=== PATIENT | female | born 1965 | race African-American/Black ===

== ENCOUNTER 2017-02-03 18:29 | Inpatient (IN) | payer OTHER ==
[2017-02-03 20:06] VITALS: BMI 23.3
--- NOTE | 2017-02-03 21:05 | HP ---
COWS - Scale Resting Pulse: 0= [place] 80 or Below Sweatin=Flushed/Facial Moisture Restless Observation: 1= Difficult to Sit Still Pupil Size: 1= Pupils >than Normal Bone or Joint Aches: 2= Severe Diffuse Aches Runny Nose/ Eye Tearin= Runny Nose/Eyes GI Upset > 30mins: 1= Stomach Cramp Tremor Observation: 1= Tremor [place], Not Seen Yawning Observation: 1= 1-2x During Session Anxiety or Irritability: 2=Irritable/Anxious Goose Flesh Skin: 3=Piloerection COWS Score: 16 Admission ROS S - [facility] Chief Complaint: Withdrawal symptoms Allergies/Adverse Reactions: Allergies Allergy/AdvReac Type Severity Reaction Status Date / Time No Known Allergies Allergy Verified 01/08/16 19:38 History of Present Illness: 51 y.o. woman with an extensive history of heroin dependence is here seeking detox. She reports a 6 year history of being clean. She was last here for detox in 01/2016. Exam Limitations: No Limitations - Ebola screening Have you traveled outside of the country in the last 21 days: No Have you had contact with anyone from an Ebola affected area: No Have you been sick,other than usual withdrawal symptoms: No Do you have a fever: No - Review of Systems Constitutional: Chills, Diaphoresis, Loss of Appetite, Night Sweats, Unintentional Wgt. Loss EENT: reports: Blurred Vision, Tearing, Nose Congestion Respiratory: reports: No Symptoms reported Cardiac: reports: No Symptoms Reported GI: reports: Abdominal cramping : reports: No Symptoms Reported Musculoskeletal: reports: Back Pain Integumentary: reports: No Symptoms Reported Neuro: reports: Headache, Tingling Endocrine: reports: No Symptoms Reported Hematology: reports: No Symptoms Reported Psychiatric: reports: Orientated x3, Depressed Other Systems: Reviewed and Negative Patient History - Patient Medical History Hx Anemia: Yes (MV) Hx Asthma: No Hx Chronic Obstructive Pulmonary Disease (COPD): No Hx Cancer: No Hx Cardiac Disorders: No Hx Congestive Heart Failure: No Hx Hypertension: Yes (ON LISINOPRIL) Hx Hypercholesterolemia: No Hx Pacemaker: No HX Cerebrovascular Accident: No Hx Seizures: No Hx Dementia: No Hx Diabetes: No Hx Gastrointestinal Disorders: No Hx Liver Disease: No Hx Genitourinary Disorders: No Hx Sexually Transmitted Disorders: No Hx Renal Disease (ESRD): No Hx Thyroid Disease: No Hx Human Immunodeficiency Virus (HIV): No Hx Hepatitis C: Yes (NO TXMENT) Hx Depression: Yes (PRESENTLY DENIES SI/HI) Hx Suicide Attempt: No Hx Bipolar Disorder: No Hx Schizophrenia: No - Patient Surgical History Past Surgical History: Yes Hx Neurologic Surgery: No Hx Cataract Extraction: No Hx Cardiac Surgery: No Hx Lung Surgery: No Hx Breast Surgery: No Hx Breast Biopsy: No Hx Abdominal Surgery: No Hx Appendectomy: No Hx Cholecystectomy: No Hx Genitourinary Surgery: No Hx Section: Yes (X5) Hx Orthopedic Surgery: No Anesthesia Reaction: No - PPD History Previous Implant?: Yes Documented Results: Negative w/proof Implanted On Prior R Admission?: Yes Date: 01/10/16 Results: 0 PPD to be Administered?: Yes - Reproductive History Patient is a Female of Child Bearing Age (11 -55 yrs old): Yes Last Menstrual Period: 10/23/15 Patient : No - Smoking Cessation Smoking history: Current every day smoker Have you smoked in the past 12 months: Yes Aproximately how many cigarettes per day: 20 Cigars Per Day: 0 Hx Chewing Tobacco Use: No Initiated information on smoking cessation: Yes 'Breaking Loose' booklet given: 02/03/17 - Substance & Tx. History Hx Alcohol Use: No Hx Substance Use: Yes Substance Use Type: Cocaine, Heroin Hx Substance Use Treatment: Yes (Detox here in 01/2016; cant recall last admission to rehab) - Substances Abused Heroin Route: Injection Frequency: Daily Amount used: 1 bundle Age of first use: 20 Date of Last Use: 02/02/17 Family Disease History - Family Disease History Family Disease History: Other: Father ( ESTRANGED), Mother ( AIDS), Sister (DRUG ABUSE) Admission Physical Exam BHS - Vital Signs Vital Signs: Vital Signs - 24 hr 02/03/17 20:03 Temperature 98.9 F Pulse Rate 69 Respiratory 18 Rate Blood Pressure 148/78 - Physical General Appearance: Yes: Tremorous, Irritable, Sweating, Anxious HEENTM: Yes: Hearing grossly Normal, Normal ENT Inspection, Normocephalic Respiratory: Yes: Chest Non-Tender, Lungs Clear, Normal Breath Sounds, No Respiratory Distress, No Accessory Muscle Use Neck: Yes: No masses,lesions,Nodules, Trachea in good position Breast: Yes: Breast Exam Deferred Cardiology: Yes: Regular Rhythm, Regular Rate Abdominal: Yes: Non Tender, Flat, Soft Genitourinary: Yes: Other Back: Yes: Normal Inspection Musculoskeletal: Yes: Gait Steady, Pelvis Stable, Back pain Extremities: Yes: Normal Capillary Refill, Normal Inspection, Normal Range of Motion Neurological: Yes: 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 II-XII NML intact, Fully Oriented, Alert, Motor Strength 5/5, Normal Mood/Affect, Normal Response Integumentary: Yes: Normal Color, Dry, Warm, Track Vee Lymphatic: Yes: Within Normal Limits - Diagnostic (1) Cocaine dependence Current Visit: Yes Status: Chronic (2) Hypertension Current Visit: Yes Status: Chronic (3) Opioid dependence with withdrawal Current Visit: Yes Status: Chronic Cleared for Admission [facility] - Detox or Rehab [facility] Level of Care: Medically Managed Detox Regimen/Protocol: Methadone [facility] Breath Alcohol Content Breath Alcohol Content: 0 Urine Pregancy Test - Result Urine Test Results: Negative- NO Line Present Urine Drug Screen - Results Drug Screen Negative: No Urine Drug Screen Results: MIRNA-Cocaine, OPI-Opiates, BZO-Benzodiazepines, TCA- Tricyclic Antidepress
[2017-02-03] MEDS ORDERED: IBUPROFEN 400 MG TABLET (FP) PO PRN (21:23)
[2017-02-03] MEDS ORDERED: guaiFENesin/D-METHORPHAN HB 10 ML UNIT-DOSE CUPS PO PRN (21:23)
[2017-02-03] MEDS ORDERED: MAGNESIUM HYDROX 2400MG/30ML ORAL SUSPENSION 30 ML CUP PO PRN (21:23)
[2017-02-03] MEDS ORDERED: P-EPHED 60MG/TRIPROLIDI 2.5MG TABLET PO PRN (21:23)
[2017-02-03] MEDS ORDERED: ACETAMINOPHEN 325 MG TABLET (FP) PO PRN (21:23)
[2017-02-03] MEDS ORDERED: METHADONE HCL 10 MG TABLET (FOR DETOX USE ONLY) PO ONE ×2 (21:23→23:00)
[2017-02-03] MEDS ORDERED: MAG HYDROX/AL HYDROX/SIMETH 30 ML UNIT-DOSE CUP PO PRN (21:23)
[2017-02-03] MEDS ORDERED: LOPERAMIDE HCL 2 MG CAPSULE PO PRN (21:23)
[2017-02-03] MEDS ORDERED: MAGNESIUM CITRATE 300 ML BOTTLE PO PRN (21:23)
[2017-02-03] MEDS ORDERED: MENTHOL/PHENOL 1 EACH UD MM PRN (21:23)
[2017-02-03] MEDS: LISINOPRIL 5 MG TABLET (FP) PO SCH (22:38)
[2017-02-03] MEDS: THIAMINE HCL 100 MG TABLET (FP) PO SCH (22:38)
[2017-02-03] MEDS: diazePAM 5 MG TABLET PO PRN (22:38)
[2017-02-04] MEDS: hydrOXYzine PAMOATE 50 MG CAPSULE (FP) PO PRN (00:41)
[2017-02-04 01:19] LABS: URINE APPEARANCE CLOUDY; URINE BILIRUBIN NEGATIVE (NEGATIVE); URINE BLOOD NEGATIVE (NEGATIVE); URINE COLOR AMBER; URINE GLUCOSE (UA) 2+ (NEGATIVE); URINE KETONE NEGATIVE (NEGATIVE); URINE NITRITE NEGATIVE (NEGATIVE); URINE UROBILINOGEN 4.0 E.U/dl mg/dL (0.2-1.0)
[2017-02-04 01:26] LABS: URINE LEUK ESTERASE 2+ (NEGATIVE); URINE PROTEIN 1+ (NEGATIVE)
[2017-02-04 01:30] LABS: URINE HYALINE CAST 8 /lpf; URINE MUCUS MANY; URINE RBC 11 /hpf (0-3); URINE WBC 41 /hpf (3-5)
[2017-02-04] MEDS: diazePAM 5 MG TABLET PO PRN ×3 (03:30→22:28)
[2017-02-04] MEDS ORDERED: METHADONE HCL 10 MG TABLET (FOR DETOX USE ONLY) PO ONE (10:00)
[2017-02-04 10:32] LABS: MCH 29.9 pg (25.7-33.7); MCHC 34.2 g/dl (32.0-36.0); MEAN CELL VOLUME 87.5 fl (80-96); MEAN PLT VOLUME 8.7 fl (7.5-11.1); PLATELET COUNT 199 K/MM3 (134-434); RDW 15.3 % (11.6-15.6); WHITE BLOOD COUNT 6.7 K/mm3 (4.0-10.0)
[2017-02-04 10:55] LABS: ALBUMIN 3.1 g/dl (3.4-5.0); ALK PHOS 117 U/L (45-117); ANION GAP 7 (8-16); BILIRUBIN,TOTAL 0.3 mg/dL (0.2-1.0); CO2 29 mmol/L (21-32); CREATININE 1.1 mg/dL (0.55-1.02); GLUCOSE,RANDOM 231 mg/dL (74-106); SGOT/AST 22 U/L (15-37); SGPT/ALT 25 U/L (12-78); TOT PROT 6.4 g/dl (6.4-8.2)
[2017-02-04] MEDS: NICOTINE 21 MG/24 HOURS TOPICAL PATCH TD SCH (11:10)
[2017-02-04] MEDS: PRENATAL VITAMINS W/ FOLIC ACID TABLET (FP) PO SCH (11:10)
[2017-02-04] MEDS: LISINOPRIL 5 MG TABLET (FP) PO SCH (11:10)
--- NOTE | 2017-02-04 11:12 | PN ---
BHS COWS - Scale Resting Pulse: 0= [place] 80 or Below Sweatin=Flushed/Facial Moisture Restless Observation: 1= Difficult to Sit Still Pupil Size: 0= Normal to Room Light Bone or Joint Aches: 2= Severe Diffuse Aches Runny Nose/ Eye Tearin= Runny Nose/Eyes GI Upset > 30mins: 2= Nausea/Diarrhea Tremor Observation of Outstretched Hands: 2= Slight Tremor Visible Yawning Observation: 2= >3x During Session Anxiety or Irritability: 2=Irritable/Anxious Goose Flesh Skin: 0=Smooth Skin COWS Score: 15 BHS Progress Note (SOAP) Subjective: agitation anxiety sweats shakes body aches irritable I was borderline diabetic and took medication a long time ago. Objective: 02/04/17 11:11 Vital Signs Temperature 98.3 F 02/04/17 09:49 Pulse Rate 74 02/04/17 09:49 Respiratory Rate 16 02/04/17 09:49 Blood Pressure 126/71 02/04/17 09:49 O2 Sat by Pulse Oximetry (%) Laboratory Tests 02/03/17 02/04/17 02/04/17 22:35 06:30 06:30 WBC 6.7 RBC 4.43 Hgb 13.3 D Hct 38.8 MCV 87.5 MCH 29.9 D MCHC 34.2 RDW 15.3 D Plt Count 199 MPV 8.7 Sodium 138 Potassium 3.5 Chloride 102 Carbon Dioxide 29 Anion Gap 7 L BUN 19 H Creatinine 1.1 H Creat Clearance w eGFR 52.79 Random Glucose 231 H D Calcium 9.0 Total Bilirubin 0.3 AST 22 ALT 25 Alkaline Phosphatase 117 Total Protein 6.4 Albumin 3.1 L D Urine Color [place] Urine Appearance Cloudy Urine pH 7.0 Ur Specific [place] 1.020 Urine Protein 1+ H Urine Glucose (UA) 2+ H Urine Ketones Negative Urine Blood Negative Urine Nitrite Negative Urine Bilirubin Negative Urine Urobilinogen 4.0 e.u/dl H Ur Leukocyte Esterase 2+ H Urine RBC 11 Urine WBC 41 Ur Epithelial Cells Many Hyaline Casts 8 Urine Mucus Many repeat u/a glucose fasting blood work ordered; random glucose is 231 awake/alert ambulating no acute distress Assessment: 02/04/17 11:20 withdrawal sx Plan: continue detox increase fluids labs ordered pt placed on insulin sliding scale glucerna with meals ordered
[2017-02-04] MEDS: NICOTINE POLACRILEX 4 MG GUM BC PRN (14:01)
[2017-02-04 14:17] LABS: URINE APPEARANCE CLOUDY; URINE BILIRUBIN NEGATIVE (NEGATIVE); URINE BLOOD NEGATIVE (NEGATIVE); URINE COLOR DKYELLOW; URINE GLUCOSE (UA) 2+ (NEGATIVE); URINE KETONE NEGATIVE (NEGATIVE); URINE NITRITE NEGATIVE (NEGATIVE); URINE UROBILINOGEN 4.0 E.U/dl mg/dL (0.2-1.0)
[2017-02-04 14:21] LABS: URINE LEUK ESTERASE 3+ (NEGATIVE); URINE PROTEIN 1+ (NEGATIVE)
[2017-02-04 15:55] LABS: CALCIUM OXALATE CRYSTALS RARE /hpf (NONE SEEN); URINE HYALINE CAST 4 /lpf; URINE MUCUS MODERATE; URINE RBC 70 /hpf (0-3); URINE WBC 300 /hpf (3-5)
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
[2017-02-04] MEDS: INSULIN (NOVOLOG) ASPART 100 UNITS/ML 10ML VIAL SQ SCH (17:37)
--- NOTE | 2017-02-04 21:49 | EKG ---
Test Reason : Blood Pressure : / mmHG Vent. Rate : 071 BPM Atrial Rate : 071 BPM P-R Int : 142 ms QRS Dur : 088 ms QT Int : 412 ms P-R-T Axes : 067 008 028 degrees QTc Int : 447 ms NORMAL SINUS RHYTHM INCOMPLETE RBBB LEFT ATRIAL ABNORMALITY ABNORMAL ECG NO PREVIOUS ECGS AVAILABLE REPEAT EKG IF CLINICALLY INDICATED Confirmed by PETER GUTIERREZ MD ([id number]) on 02/04/2017 9:49:11 PM Referred By: Confirmed By:PETER GUTIERREZ MD
[2017-02-04] MEDS: THIAMINE HCL 100 MG TABLET (FP) PO SCH (22:28)
[2017-02-04] MEDS: QUEtiapine FUMARATE 100 MG TABLET (FP) PO SCH (22:28)
[2017-02-05] MEDS ORDERED: INSULIN (NOVOLOG) ASPART 100 UNITS/ML 10ML VIAL ONE ×2 (07:58→12:02)
[2017-02-05] MEDS: INSULIN (NOVOLOG) ASPART 100 UNITS/ML 10ML VIAL SQ SCH ×3 (08:14→17:38)
[2017-02-05] MEDS ORDERED: metroNIDAZOLE 250 MG TABLET PO ONE (09:25)
[2017-02-05] MEDS ORDERED: METHADONE HCL 5 MG TABLET (FOR DETOX USE ONLY) PO ONE (10:00)
[2017-02-05] MEDS: LISINOPRIL 5 MG TABLET (FP) PO SCH (10:55)
[2017-02-05] MEDS: PRENATAL VITAMINS W/ FOLIC ACID TABLET (FP) PO SCH (10:55)
[2017-02-05] MEDS: NICOTINE 21 MG/24 HOURS TOPICAL PATCH TD SCH (10:55)
[2017-02-05] MEDS: NICOTINE POLACRILEX 4 MG GUM BC PRN ×3 (11:01→22:38)
--- NOTE | 2017-02-05 11:02 | PN ---
BHS COWS - Scale Resting Pulse: 0= [place] 80 or Below Sweatin=Flushed/Facial Moisture Restless Observation: 1= Difficult to Sit Still Pupil Size: 0= Normal to Room Light Bone or Joint Aches: 2= Severe Diffuse Aches Runny Nose/ Eye Tearin= Runny Nose/Eyes GI Upset > 30mins: 2= Nausea/Diarrhea Tremor Observation of Outstretched Hands: 0= None Yawning Observation: 2= >3x During Session Anxiety or Irritability: 2=Irritable/Anxious Goose Flesh Skin: 3=Piloerection COWS Score: 16 S Progress Note (SOAP) Subjective: irritable agitation anxiety sweats Objective: 02/05/17 11:00 Vital Signs Temperature 98.5 F 02/05/17 10:00 Pulse Rate 68 02/05/17 10:00 Respiratory Rate 20 02/05/17 10:00 Blood Pressure 119/72 02/05/17 10:00 O2 Sat by Pulse Oximetry (%) Laboratory Tests 02/03/17 02/04/17 02/04/17 22:35 06:30 06:30 WBC 6.7 RBC 4.43 Hgb 13.3 D Hct 38.8 MCV 87.5 MCH 29.9 D MCHC 34.2 RDW 15.3 D Plt Count 199 MPV 8.7 Sodium 138 Potassium 3.5 Chloride 102 Carbon Dioxide 29 Anion Gap 7 L BUN 19 H Creatinine 1.1 H Creat Clearance w eGFR 52.79 POC Glucometer Random Glucose 231 H D Calcium 9.0 Total Bilirubin 0.3 AST 22 ALT 25 Alkaline Phosphatase 117 Total Protein 6.4 Albumin 3.1 L D Urine Color [place] Urine Appearance Cloudy Urine pH 7.0 Ur Specific [place] 1.020 Urine Protein 1+ H Urine Glucose (UA) 2+ H Urine Ketones Negative Urine Blood Negative Urine Nitrite Negative Urine Bilirubin Negative Urine Urobilinogen 4.0 e.u/dl H Ur Leukocyte Esterase 2+ H Urine RBC 11 Urine WBC 41 Ur Epithelial Cells Many Calcium Oxalate Crystal Hyaline Casts 8 Urine Mucus Many RPR Titer 02/04/17 02/04/17 02/04/17 06:30 12:05 16:40 WBC RBC Hgb Hct MCV MCH MCHC RDW Plt Count MPV Sodium Potassium Chloride Carbon Dioxide Anion Gap BUN Creatinine Creat Clearance w eGFR POC Glucometer 120 Random Glucose Calcium Total Bilirubin AST ALT Alkaline Phosphatase Total Protein Albumin Urine Color [place] Urine Appearance Cloudy Urine pH 6.0 Ur Specific [place] 1.020 Urine Protein 1+ H Urine Glucose (UA) 2+ H Urine Ketones Negative Urine Blood Negative Urine Nitrite Negative Urine Bilirubin Negative Urine Urobilinogen 4.0 e.u/dl H Ur Leukocyte Esterase 3+ H Urine RBC 70 Urine WBC 300 Ur Epithelial Cells Moderate Calcium Oxalate Crystal Rare Hyaline Casts 4 Urine Mucus Moderate RPR Titer Nonreactive 02/05/17 06:35 WBC RBC Hgb Hct MCV MCH MCHC RDW Plt Count MPV Sodium Potassium Chloride Carbon Dioxide Anion Gap BUN Creatinine Creat Clearance w eGFR POC Glucometer 199 Random Glucose Calcium Total Bilirubin AST ALT Alkaline Phosphatase Total Protein Albumin Urine Color Urine Appearance Urine pH Ur Specific [place] Urine Protein Urine Glucose (UA) Urine Ketones Urine Blood Urine Nitrite Urine Bilirubin Urine Urobilinogen Ur Leukocyte Esterase Urine RBC Urine WBC Ur Epithelial Cells Calcium Oxalate Crystal Hyaline Casts Urine Mucus RPR Titer awake/alert lying in bed no acute distress repeated u/a show an increase of WBC, pt states she is having a foul odor vaginally. ABX will be ordered increase fluids Assessment: 02/05/17 11:02 withdrawal sx Plan: continue detox increase fluids flagly 500mg bid x 7 days ordered
[2017-02-05] MEDS: metroNIDAZOLE 250 MG TABLET PO SCH ×2 (13:18→22:32)
[2017-02-05] MEDS: diazePAM 5 MG TABLET PO PRN ×2 (13:59→22:34)
[2017-02-05] MEDS: QUEtiapine FUMARATE 100 MG TABLET (FP) PO SCH (22:32)
[2017-02-05] MEDS: diphenhydrAMINE HCL 50 MG CAPSULE PO PRN (22:33)
[2017-02-05] MEDS: THIAMINE HCL 100 MG TABLET (FP) PO SCH (22:35)
[2017-02-06] MEDS: metroNIDAZOLE 250 MG TABLET PO SCH ×3 (06:36→22:24)
[2017-02-06] MEDS ORDERED: INSULIN (NOVOLOG) ASPART 100 UNITS/ML 10ML VIAL ONE ×2 (06:39→11:52)
[2017-02-06] MEDS: INSULIN (NOVOLOG) ASPART 100 UNITS/ML 10ML VIAL SQ SCH ×3 (07:47→17:45)
[2017-02-06] MEDS ORDERED: METHADONE HCL 5 MG TABLET (FOR DETOX USE ONLY) PO ONE (10:00)
[2017-02-06] MEDS: diazePAM 5 MG TABLET PO PRN (11:44)
[2017-02-06] MEDS: LISINOPRIL 5 MG TABLET (FP) PO SCH (11:44)
[2017-02-06] MEDS: PRENATAL VITAMINS W/ FOLIC ACID TABLET (FP) PO SCH (11:44)
[2017-02-06] MEDS: NICOTINE 21 MG/24 HOURS TOPICAL PATCH TD SCH (12:00)
--- NOTE | 2017-02-06 12:33 | PN ---
BHS Progress Note (SOAP) Subjective: Nausea, Anxious, Body Aches, Interrupted Sleep, Sweating, Body Aches. Objective: PT. A & O X 2 (DISORIENTED ABOUT DAY / DATE). NO ACUTE DISTRESS. PT. DENIES CHEST PAIN. 02/06/17 12:29 Vital Signs Temperature 97.5 F L 02/06/17 10:00 Pulse Rate 72 02/06/17 10:00 Respiratory Rate 18 02/06/17 10:00 Blood Pressure 155/95 02/06/17 10:00 O2 Sat by Pulse Oximetry (%) Laboratory Tests 02/03/17 02/04/17 02/04/17 22:35 06:30 06:30 WBC 6.7 RBC 4.43 Hgb 13.3 D Hct 38.8 MCV 87.5 MCH 29.9 D MCHC 34.2 RDW 15.3 D Plt Count 199 MPV 8.7 Sodium 138 Potassium 3.5 Chloride 102 Carbon Dioxide 29 Anion Gap 7 L BUN 19 H Creatinine 1.1 H Creat Clearance w eGFR 52.79 POC Glucometer Random Glucose 231 H D Calcium 9.0 Total Bilirubin 0.3 AST 22 ALT 25 Alkaline Phosphatase 117 Total Protein 6.4 Albumin 3.1 L D Urine Color [place] Urine Appearance Cloudy Urine pH 7.0 Ur Specific [place] 1.020 Urine Protein 1+ H Urine Glucose (UA) 2+ H Urine Ketones Negative Urine Blood Negative Urine Nitrite Negative Urine Bilirubin Negative Urine Urobilinogen 4.0 e.u/dl H Ur Leukocyte Esterase 2+ H Urine RBC 11 Urine WBC 41 Ur Epithelial Cells Many Calcium Oxalate Crystal Hyaline Casts 8 Urine Mucus Many RPR Titer 02/04/17 02/04/17 02/04/17 06:30 12:05 16:40 WBC RBC Hgb Hct MCV MCH MCHC RDW Plt Count MPV Sodium Potassium Chloride Carbon Dioxide Anion Gap BUN Creatinine Creat Clearance w eGFR POC Glucometer 120 Random Glucose Calcium Total Bilirubin AST ALT Alkaline Phosphatase Total Protein Albumin Urine Color [place] Urine Appearance Cloudy Urine pH 6.0 Ur Specific [place] 1.020 Urine Protein 1+ H Urine Glucose (UA) 2+ H Urine Ketones Negative Urine Blood Negative Urine Nitrite Negative Urine Bilirubin Negative Urine Urobilinogen 4.0 e.u/dl H Ur Leukocyte Esterase 3+ H Urine RBC 70 Urine WBC 300 Ur Epithelial Cells Moderate Calcium Oxalate Crystal Rare Hyaline Casts 4 Urine Mucus Moderate RPR Titer Nonreactive 02/05/17 02/05/17 02/05/17 06:35 11:03 16:47 WBC RBC Hgb Hct MCV MCH MCHC RDW Plt Count MPV Sodium Potassium Chloride Carbon Dioxide Anion Gap BUN Creatinine Creat Clearance w eGFR POC Glucometer 199 178 127 Random Glucose Calcium Total Bilirubin AST ALT Alkaline Phosphatase Total Protein Albumin Urine Color Urine Appearance Urine pH Ur Specific [place] Urine Protein Urine Glucose (UA) Urine Ketones Urine Blood Urine Nitrite Urine Bilirubin Urine Urobilinogen Ur Leukocyte Esterase Urine RBC Urine WBC Ur Epithelial Cells Calcium Oxalate Crystal Hyaline Casts Urine Mucus RPR Titer 02/06/17 02/06/17 06:35 11:47 WBC RBC Hgb Hct MCV MCH MCHC RDW Plt Count MPV Sodium Potassium Chloride Carbon Dioxide Anion Gap BUN Creatinine Creat Clearance w eGFR POC Glucometer 195 166 Random Glucose Calcium Total Bilirubin AST ALT Alkaline Phosphatase Total Protein Albumin Urine Color Urine Appearance Urine pH Ur Specific [place] Urine Protein Urine Glucose (UA) Urine Ketones Urine Blood Urine Nitrite Urine Bilirubin Urine Urobilinogen Ur Leukocyte Esterase Urine RBC Urine WBC Ur Epithelial Cells Calcium Oxalate Crystal Hyaline Casts Urine Mucus RPR Titer LABS NOTED. Assessment: 02/06/17 12:30 WITHDRAWAL SYMPTOMS. Plan: CONTINUE DETOX. CONTINUE TO MONITOR BP.
[2017-02-06] MEDS: hydrOXYzine PAMOATE 50 MG CAPSULE (FP) PO PRN (13:53)
[2017-02-06] MEDS: NICOTINE POLACRILEX 4 MG GUM BC PRN ×2 (15:02→22:27)
[2017-02-06] MEDS: THIAMINE HCL 100 MG TABLET (FP) PO SCH (22:24)
[2017-02-06] MEDS: QUEtiapine FUMARATE 100 MG TABLET (FP) PO SCH (22:24)
[2017-02-06] MEDS: diphenhydrAMINE HCL 50 MG CAPSULE PO PRN (22:25)
[2017-02-07] MEDS: metroNIDAZOLE 250 MG TABLET PO SCH (06:14)
[2017-02-07] MEDS: INSULIN (NOVOLOG) ASPART 100 UNITS/ML 10ML VIAL SQ SCH ×2 (07:49→11:38)
[2017-02-07] MEDS ORDERED: MINERAL OIL/PETROLAT/WATER TOPICAL CREAM 113 GM JAR TP PRN (09:15)
[2017-02-07] MEDS ORDERED: METHADONE HCL 10 MG TABLET (FOR DETOX USE ONLY) PO ONE (10:00)
[2017-02-07 10:33] VITALS: BP 158/83; PULSE 68; TEMP 97.5
[2017-02-07] MEDS: PRENATAL VITAMINS W/ FOLIC ACID TABLET (FP) PO SCH (10:33)
[2017-02-07] MEDS: LISINOPRIL 5 MG TABLET (FP) PO SCH (10:33)
[2017-02-07] MEDS: NICOTINE 21 MG/24 HOURS TOPICAL PATCH TD SCH (10:35)
[2017-02-07] MEDS: NICOTINE POLACRILEX 4 MG GUM BC PRN (10:37)
--- NOTE | 2017-02-07 10:40 | PN ---
BHS Progress Note (SOAP) Subjective: feeling better dry skin vaginal odor disappeared Objective: 02/07/17 10:39 Vital Signs Temperature 97.5 F L 02/07/17 10:00 Pulse Rate 68 02/07/17 10:00 Respiratory Rate 18 02/07/17 10:00 Blood Pressure 158/83 02/07/17 10:00 O2 Sat by Pulse Oximetry (%) awake/alert ambulating no acute distress Assessment: 02/07/17 10:39 no withdrawal sx noted Plan: continue detox eurcerin ointment d/c today early afternoon
--- NOTE | 2017-02-07 12:28 | DS ---
[facility] Detox Discharge Summary Admission Date: 02/03/17 Discharge Date: 02/07/17 - History Present History: Cocaine Dependence, Sedative Dependence - Physical Exam Results Vital Signs: Vital Signs Temperature 97.5 F L 02/07/17 10:00 Pulse Rate 68 02/07/17 10:00 Respiratory Rate 18 02/07/17 10:00 Blood Pressure 158/83 02/07/17 10:00 O2 Sat by Pulse Oximetry (%) - Treatment Hospital Course: Detox Protocol Followed, Detoxed Safely, Responded well, Discharged Condition Good, Rehab Referral Accepted - Medication Discharge Medications: Ambulatory Orders Clonazepam [Klonopin -] 2 mg PO BID 01/08/16 Quetiapine Fumarate [Seroquel -] 100 mg PO DAILY 01/08/16 Bupropion HCl [Wellbutrin Xl -] 150 mg PO DAILY #30 tab.sr.[id number] 01/09/16 Quetiapine Fumarate [Seroquel] 100 mg PO HS #30 tablet 02/04/17 Enalapril Maleate [Vasotec -] 10 mg PO DAILY #30 tab 02/07/17 Metronidazole [Flagyl -] 500 mg PO TID #12 tablet 02/07/17 - Diagnosis (1) Benzodiazepine dependence Current Visit: Yes Status: Chronic (2) Cocaine dependence Current Visit: Yes Status: Chronic Qualifiers: Substance use status: uncomplicated Qualified Code(s): F14.20 - Cocaine dependence, uncomplicated (3) Nicotine dependence Current Visit: Yes Status: Chronic Qualifiers: Nicotine product type: cigarettes Substance use status: uncomplicated Qualified Code(s): F17.210 - Nicotine dependence, cigarettes, uncomplicated (4) Opioid dependence with withdrawal Current Visit: Yes Status: Chronic (5) Substance induced mood disorder Current Visit: Yes Status: Chronic (6) Hypertension Current Visit: Yes Status: Chronic Qualifiers: Hypertension type: essential hypertension Qualified Code(s): I10 - Essential (primary) hypertension (7) Opioid dependence Current Visit: Yes Status: Chronic Qualifiers: Substance use status: uncomplicated Qualified Code(s): F11.20 - Opioid dependence, uncomplicated (8) Depressive disorder Current Visit: No Status: Suspected - AMA Did Patient Leave Against Medical Advice: No
[2017-02-08] MEDS ORDERED: METHADONE HCL 5 MG TABLET (FOR DETOX USE ONLY) PO ONE (06:00)
== END 2017-02-07 00:32 | disposition home or self-care (01) | DRG 773 ==
LOC: YASAS 18:29 → Y6N 21:12
PROVIDERS: ADMIT Internal Medicine; ATTEND Surgery
PROC: HZ2ZZZZ Detoxification Services for Substance Abuse Treatment (ICD-10-PCS; principal; 2017-02-07)
DX: F11.23 Opioid dependence with withdrawal (principal); F13.20 Sedative, hypnotic or anxiolytic dependence, uncomplicated; F14.20 Cocaine dependence, uncomplicated; F17.210 Nicotine dependence, cigarettes, uncomplicated; F19.24 Other psychoactive substance dependence with psychoactive substance-induced mood disorder; F34.1 Dysthymic disorder; I10 Essential (primary) hypertension
CPT/HCPCS: 36415; 80053; 81003; 81015; 85027; 86593; 93005; 93010

== ENCOUNTER 2018-09-01 17:01 | Inpatient (IN) | payer OTHER ==
[2018-09-01 18:29] VITALS: BMI 17.4
--- NOTE | 2018-09-01 19:06 | HP ---
COWS - Scale Resting Pulse: 1= [place] 81-100 Sweatin=Flushed/Facial Moisture Restless Observation: 1= Difficult to Sit Still Pupil Size: 0= Normal to Room Light Bone or Joint Aches: 2= Severe Diffuse Aches Runny Nose/ Eye Tearin= Runny Nose/Eyes GI Upset > 30mins: 0= None Tremor Observation: 2= Slight Tremor Visible Yawning Observation: 2= >3x During Session Anxiety or Irritability: 2=Irritable/Anxious Goose Flesh Skin: 0=Smooth Skin COWS Score: 14 CIWA Score Nausea/Vomitin-Mild Nausea/No Vomiting Muscle Tremors: 4-Moderate,w/Arms Extend Anxiety: 3 Agitation: 3 Paroxysmal Sweats: 3 Orientation: 0-Oriented Tacttile Disturbances: 0-None Auditory Disturbances: 0-None Visual Disturbances: 0-None Headache: 0-None Present CIWA-Ar Total Score: 14 - Admission Criteria OASAS Guidelines: Admission for Medically Managed Detox: Requires at least one of the followin. CIWA greater than 12 2. Seizures within the past 24 hours 3. Delirium tremens within the past 24 hours 4. Hallucinations within the past 24 hours 5. Acute intervention needed for co occurring medical disorder 6. Acute intervention needed for co occurring psychiatric disorder 7. Severe withdrawal that cannot be handled at a lower level of care (continued vomiting, continued diarrhea, abnormal vital signs) requiring intravenous medication and/or fluids 8. Admission ROS S - [facility] Chief Complaint: I need to stop using I need my life back. Allergies/Adverse Reactions: Allergies Allergy/AdvReac Type Severity Reaction Status Date / Time No Known Allergies Allergy Verified 02/03/17 21:41 History of Present Illness: Pt is a 53yr old male with a history of alcohol and heroin dependence seeking detox for treatment. Pt was sober for 5yrs and relapsed a 1yr ago. Exam Limitations: No Limitations - Ebola screening Have you traveled outside of the country in the last 21 days: No (N) Have you had contact with anyone from an Ebola affected area: No Have you been sick,other than usual withdrawal symptoms: No Do you have a fever: No - Review of Systems Constitutional: Chills, Diaphoresis, Loss of Appetite, Night Sweats, Changes in sleep EENT: reports: Tearing, Nose Congestion Respiratory: reports: No Symptoms reported Cardiac: reports: No Symptoms Reported GI: reports: Poor Appetite, Poor Fluid Intake : reports: No Symptoms Reported Musculoskeletal: reports: Back Pain, Joint Pain (gout to left knee.) Integumentary: reports: Sweating Neuro: reports: Headache, Tingling, Tremors Endocrine: reports: Excessive Sweating, Flushing, Intolerance to Cold, Intolerance to Heat Hematology: reports: No Symptoms Reported Psychiatric: reports: Judgement Intact, Mood/Affect Appropiate, Orientated x3, Agitated Other Systems: Reviewed and Negative Patient History - Patient Medical History Hx Anemia: No Hx Asthma: No Hx Chronic Obstructive Pulmonary Disease (COPD): No Hx Cancer: No Hx Cardiac Disorders: No Hx Congestive Heart Failure: No Hx Hypertension: Yes (lisnopril) Hx Hypercholesterolemia: No Hx Pacemaker: No HX Cerebrovascular Accident: No Hx Seizures: No Hx Dementia: No Hx Diabetes: No Hx Gastrointestinal Disorders: No Hx Liver Disease: No Hx Genitourinary Disorders: No Hx Sexually Transmitted Disorders: No Hx Renal Disease (ESRD): No Hx Thyroid Disease: No Hx Human Immunodeficiency Virus (HIV): No (negative) Hx Hepatitis C: Yes (NO TXMENT) Hx Depression: Yes (PRESENTLY DENIES SI/HI) Hx Suicide Attempt: No (denies) Hx Bipolar Disorder: No Hx Schizophrenia: No - Patient Surgical History Past Surgical History: Yes Hx Neurologic Surgery: No Hx Cataract Extraction: No Hx Cardiac Surgery: No Hx Lung Surgery: No Hx Breast Surgery: No Hx Breast Biopsy: No Hx Abdominal Surgery: No Hx Appendectomy: No Hx Cholecystectomy: No Hx Genitourinary Surgery: No Hx Section: Yes (X5) Hx Orthopedic Surgery: No Anesthesia Reaction: No - PPD History Previous Implant?: Yes Documented Results: Negative w/o proof PPD to be Administered?: Yes - Reproductive History Patient is a Female of Child Bearing Age (11 -55 yrs old): Yes Last Menstrual Period: 08/18/18 Patient : No - Smoking Cessation Smoking history: Current every day smoker Have you smoked in the past 12 months: Yes Aproximately how many cigarettes per day: 20 Hx Chewing Tobacco Use: No Initiated information on smoking cessation: Yes 'Breaking Loose' booklet given: 09/01/18 - Substance & Tx. History Hx Alcohol Use: Yes Hx Substance Use: Yes Substance Use Type: Alcohol, Cocaine, Heroin, Tranquilizers Hx Substance Use Treatment: Yes (last detox [facility] 2013) - Substances Abused Alcohol Route: Oral Frequency: Daily Amount used: 1 bottle of wine/jeffrey Age of first use: 18 Date of Last Use: 09/01/18 Alprazolam (Xanax) Route: Oral Frequency: 3-6 times per week Amount used: 1 stick Age of first use: 53 Date of Last Use: 08/31/18 Heroin Route: Injection Frequency: Daily Amount used: 6 bags Age of first use: 42 Date of Last Use: 09/01/18 Family Disease History - Family Disease History Family Disease History: Other: Father ( ESTRANGED), Mother ( AIDS), Sister (DRUG ABUSE) Admission Physical Exam [facility] - Vital Signs Vital Signs: Vital Signs - 24 hr 09/01/18 18:26 Temperature 98.5 F Pulse Rate 94 H Respiratory 18 Rate Blood Pressure 147/85 - Physical General Appearance: Yes: Appropriately Dressed, Moderate Distress, Tremorous, Irritable, Sweating, Anxious HEENTM: Yes: Normal Voice, Hearing Decreased, Nasal Congestion, Rhinorrhea Respiratory: Yes: Lungs Clear, Normal Breath Sounds, No Respiratory Distress Neck: Yes: No masses,lesions,Nodules Breast: Yes: Within Normal Limits Cardiology: Yes: Regular Rhythm, Regular Rate, S1, S2 Abdominal: Yes: Normal Bowel Sounds, Non Tender, Flat Genitourinary: Yes: Within Normal Limits Back: Yes: Normal Inspection Musculoskeletal: Yes: full range of Motion, Back pain Extremities: Yes: Normal Capillary Refill, Normal Inspection, Tremors Neurological: Yes: Fully Oriented, Alert, Normal Response Integumentary: Yes: Normal Color, Diaphoresis, Track Vee Lymphatic: Yes: Within Normal Limits - Diagnostic (1) Cocaine dependence Current Visit: Yes Status: Chronic Qualifiers: Substance use status: uncomplicated Qualified Code(s): F14.20 - Cocaine dependence, uncomplicated (2) Hypertension Current Visit: Yes Status: Chronic Qualifiers: Hypertension type: essential hypertension Qualified Code(s): I10 - Essential (primary) hypertension (3) Nicotine dependence Current Visit: Yes Status: Chronic Qualifiers: Nicotine product type: cigarettes Substance use status: uncomplicated Qualified Code(s): F17.210 - Nicotine dependence, cigarettes, uncomplicated (4) Opioid dependence with withdrawal Current Visit: Yes Status: Chronic (5) Gout of knee Current Visit: Yes Status: Chronic Qualifiers: Chronicity: unspecified Laterality: left Cleared for Admission [facility] - Detox or Rehab [facility] Level of Care: Medically Managed Detox Regimen/Protocol: Methadone/Librium [facility] Breath Alcohol Content Breath Alcohol Content: 0 Urine Pregancy Test - Result Urine Test Results: Negative- NO Line Present Urine Drug Screen - Results Drug Screen Negative: No Urine Drug Screen Results: MIRNA-Cocaine, OPI-Opiates, BZO-Benzodiazepines, FEN- Fentanyl Inpatient Rehab Admission - Rehab Decision to Admit Inpatient rehab admission?: No
[2018-09-01] MEDS ORDERED: LOPERAMIDE HCL 2 MG CAPSULE PO PRN (19:23)
[2018-09-01] MEDS ORDERED: P-EPHED 60MG/TRIPROLIDI 2.5MG TABLET PO PRN (19:23)
[2018-09-01] MEDS ORDERED: MAGNESIUM HYDROX 2400MG/30ML ORAL SUSPENSION 30 ML CUP PO PRN (19:23)
[2018-09-01] MEDS ORDERED: guaiFENesin/D-METHORPHAN HB 10 ML UNIT-DOSE CUPS PO PRN (19:23)
[2018-09-01] MEDS ORDERED: MENTHOL/PHENOL 1 EACH UD MM PRN (19:23)
[2018-09-01] MEDS ORDERED: chlordiazePOXIDE HCL 25 MG CAPSULE PO ONE (19:23)
[2018-09-01] MEDS ORDERED: MAG HYDROX/AL HYDROX/SIMETH 30 ML UNIT-DOSE CUP PO PRN (19:23)
[2018-09-01] MEDS ORDERED: ACETAMINOPHEN 325 MG TABLET (FP) PO PRN (19:23)
[2018-09-01] MEDS ORDERED: MAGNESIUM CITRATE 300 ML BOTTLE PO PRN (19:23)
[2018-09-01] MEDS ORDERED: IBUPROFEN 400 MG TABLET (FP) PO PRN (19:23)
[2018-09-01] MEDS ORDERED: METHADONE HCL 10 MG TABLET (FOR DETOX USE ONLY) PO ONE ×2 (21:45→23:00)
[2018-09-01] MEDS: THIAMINE HCL 100 MG TABLET (FP) PO SCH (21:53)
[2018-09-01] MEDS: chlordiazePOXIDE HCL 25 MG CAPSULE PO SCH (22:05)
[2018-09-01] MEDS: NICOTINE POLACRILEX 4 MG GUM BC PRN (22:22)
[2018-09-01] MEDS: hydrOXYzine PAMOATE 50 MG CAPSULE (FP) PO PRN (23:24)
[2018-09-02] MEDS: NICOTINE POLACRILEX 4 MG GUM BC PRN ×6 (01:19→23:20)
[2018-09-02] MEDS: chlordiazePOXIDE HCL 25 MG CAPSULE PO PRN ×3 (01:19→21:09)
[2018-09-02] MEDS: chlordiazePOXIDE HCL 25 MG CAPSULE PO SCH ×4 (05:54→22:38)
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
[2018-09-02] MEDS ORDERED: METHADONE HCL 10 MG TABLET (FOR DETOX USE ONLY) PO SCH (10:00)
--- NOTE | 2018-09-02 10:11 | PN ---
[facility] CIWA - CIWA Score Nausea/Vomitin-Mild Nausea/No Vomiting Muscle Tremors: 3 Anxiety: 1-Mildly Anxious Agitation: 3 Paroxysmal Sweats: 1-Minimal Palms Moist Orientation: 1-Uncertain about Date Tacttile Disturbances: 0-None Auditory Disturbances: 0-None Visual Disturbances: 0-None Headache: 1-Very Mild CIWA-Ar Total Score: 11 S COWS - Scale Resting Pulse: 0= [place] 80 or Below Sweatin= Chills/Flushing Restless Observation: 0= Sits Still Pupil Size: 0= Normal to Room Light Bone or Joint Aches: 2= Severe Diffuse Aches Runny Nose/ Eye Tearin= Runny Nose/Eyes GI Upset > 30mins: 2= Nausea/Diarrhea Tremor Observation of Outstretched Hands: 2= Slight Tremor Visible Yawning Observation: 1= 1-2x During Session Anxiety or Irritability: 1=Feels Anxious/Irritable Goose Flesh Skin: 0=Smooth Skin COWS Score: 11 [facility] Progress Note (SOAP) Subjective: anxiety tremor body aches sweating joints pain restlessness Objective: 09/02/18 10:13 Vital Signs Temperature 98.4 F 09/02/18 09:13 Pulse Rate 73 09/02/18 09:13 Respiratory Rate 18 09/02/18 09:13 Blood Pressure 110/59 L 09/02/18 09:13 O2 Sat by Pulse Oximetry (%) lab noted Assessment: 09/02/18 10:13 withdrawal sx Plan: continue detox
[2018-09-02] MEDS: ENALAPRIL MALEATE 10 MG TABLET (FP) PO SCH (10:39)
[2018-09-02] MEDS: PRENATAL VITAMINS W/ FOLIC ACID TABLET (FP) PO SCH (10:39)
[2018-09-02] MEDS: NICOTINE 21 MG/24 HOURS TOPICAL PATCH TD SCH (10:39)
[2018-09-02] MEDS: COLCHICINE 0.6 MG TABLET (FP) PO SCH (11:12)
[2018-09-02 14:18] LABS: HEMATOCRIT 40.7 % (32.4-45.2); HEMOGLOBIN 13.7 GM/dL (10.7-15.3); MCH 31.6 pg (25.7-33.7); MCHC 33.7 g/dl (32.0-36.0); MEAN CELL VOLUME 93.6 fl (80-96); MEAN PLT VOLUME 8.6 fl (7.5-11.1); PLATELET COUNT 194 K/MM3 (134-434); RBC 4.35 M/mm3 (3.60-5.2); RDW 13.6 % (11.6-15.6); WHITE BLOOD COUNT 6.7 K/mm3 (4.0-10.0)
[2018-09-02 14:34] LABS: ALBUMIN 3.2 g/dl (3.4-5.0); ALK PHOS 153 U/L (45-117); ANION GAP 5 MMOL/L (8-16); BILIRUBIN,TOTAL 0.2 mg/dL (0.2-1); BLOOD UREA NITROGEN 23 mg/dL (7-18); CALCIUM 8.7 mg/dL (8.5-10.1); CHLORIDE 104 mmol/L (98-107); CO2 29 mmol/L (21-32); CREATININE 1.1 mg/dL (0.55-1.3); GLUCOSE,RANDOM 169 mg/dL (74-106); POTASSIUM 3.7 mmol/L (3.5-5.1); SGOT/AST 15 U/L (15-37); SGPT/ALT 13 U/L (13-61); SODIUM 139 mmol/L (136-145); TOT PROT 6.6 g/dl (6.4-8.2)
[2018-09-02] MEDS: MINERAL OIL/PETROLAT/WATER TOPICAL CREAM 113 GM JAR TP SCH (17:37)
[2018-09-02] MEDS: QUEtiapine FUMARATE 100 MG TABLET (FP) PO SCH (22:38)
[2018-09-02] MEDS: THIAMINE HCL 100 MG TABLET (FP) PO SCH (22:38)
[2018-09-02] MEDS: MELATONIN 5 MG TABLETS PO PRN (22:38)
[2018-09-02] MEDS: CLOTRIMAZOLE 1% VAGINAL CREAM WITH APPLICATOR 45 GM TUBE VG SCH (22:38)
--- NOTE | 2018-09-03 02:38 | EKG ---
Test Reason : Blood Pressure : / mmHG Vent. Rate : 083 BPM Atrial Rate : 083 BPM P-R Int : 150 ms QRS Dur : 088 ms QT Int : 382 ms P-R-T Axes : 061 023 033 degrees QTc Int : 448 ms Suspect unspecified pacemaker failure NORMAL SINUS RHYTHM POSSIBLE LEFT ATRIAL ENLARGEMENT LEFT VENTRICULAR HYPERTROPHY ABNORMAL ECG WHEN COMPARED WITH ECG OF 03-FEB-2017 21:32, CRITERIA FOR SEPTAL INFARCT ARE NO LONGER PRESENT Confirmed by MICHAEL OLIVA MD ([id number]) on 09/03/2018 2:37:38 AM Referred By: Confirmed By:MICHAEL OLIVA MD
[2018-09-03] MEDS: chlordiazePOXIDE HCL 25 MG CAPSULE PO SCH ×3 (06:08→18:01)
[2018-09-03] MEDS ORDERED: buPROPion HCL 100 MG TABLET PO SCH (10:00)
[2018-09-03] MEDS: NICOTINE 21 MG/24 HOURS TOPICAL PATCH TD SCH (11:08)
[2018-09-03] MEDS: METHADONE HCL 5 MG TABLET (FOR DETOX USE ONLY) PO SCH (11:09)
[2018-09-03] MEDS: COLCHICINE 0.6 MG TABLET (FP) PO SCH (11:09)
[2018-09-03] MEDS: ENALAPRIL MALEATE 10 MG TABLET (FP) PO SCH (11:09)
[2018-09-03] MEDS: PRENATAL VITAMINS W/ FOLIC ACID TABLET (FP) PO SCH (11:09)
[2018-09-03] MEDS: MINERAL OIL/PETROLAT/WATER TOPICAL CREAM 113 GM JAR TP SCH (11:09)
[2018-09-03] MEDS: NICOTINE POLACRILEX 4 MG GUM BC PRN ×3 (11:21→22:39)
--- NOTE | 2018-09-03 15:29 | PN ---
S CIWA - CIWA Score Nausea/Vomitin-No Nausea/No Vomiting Muscle Tremors: 4-Moderate,w/Arms Extend Anxiety: 3 Agitation: 0-Normal Activity Paroxysmal Sweats: 3 Orientation: 0-Oriented Tacttile Disturbances: 2-Mild Itch/Numbness/Burn Auditory Disturbances: 0-None Visual Disturbances: 2-Mild Sensitivity Headache: 0-None Present CIWA-Ar Total Score: 14 [facility] COWS - Scale Resting Pulse: 0= [place] 80 or Below Sweatin= Chills/Flushing Restless Observation: 1= Difficult to Sit Still Pupil Size: 0= Normal to Room Light Bone or Joint Aches: 0= None Runny Nose/ Eye Tearin= Nasal Congestion GI Upset > 30mins: 0= None Tremor Observation of Outstretched Hands: 2= Slight Tremor Visible Yawning Observation: 1= 1-2x During Session Anxiety or Irritability: 2=Irritable/Anxious Goose Flesh Skin: 0=Smooth Skin COWS Score: 8 [facility] Progress Note (SOAP) Subjective: Sweating, Interrupted Sleep, Tremors. Objective: PATIENT A & O X 3, OBSERVED AMBULATING ON UNIT. IN NO ACUTE DISTRESS. 09/03/18 15:28 Vital Signs Temperature 98 F 09/02/18 21:59 Pulse Rate 78 09/03/18 13:54 Respiratory Rate 18 09/03/18 13:54 Blood Pressure 118/78 09/03/18 13:54 O2 Sat by Pulse Oximetry (%) Laboratory Tests 09/02/18 09/02/18 09/02/18 10:30 10:30 10:30 WBC 6.7 RBC 4.35 Hgb 13.7 Hct 40.7 MCV 93.6 MCH 31.6 MCHC 33.7 RDW 13.6 D Plt Count 194 MPV 8.6 Sodium 139 Potassium 3.7 Chloride 104 Carbon Dioxide 29 Anion Gap 5 L BUN 23 H Creatinine 1.1 Creat Clearance w eGFR 52.36 Random Glucose 169 H Calcium 8.7 Total Bilirubin 0.2 AST 15 ALT 13 Alkaline Phosphatase 153 H Total Protein 6.6 Albumin 3.2 L RPR Titer Nonreactive LABS NOTED. Assessment: 09/03/18 15:28 WITHDRAWAL SYMPTOMS. Plan: CONTINUE DETOX. INCREASE DAILY PO FLUID INTAKE.
--- NOTE | 2018-09-03 18:09 | PN ---
Psychiatric Progress Note Vital Signs: Vital Signs Period Temp Pulse Resp BP Sys/Le Pulse Ox Last 24 Hr 98 F 71-84 16-18 106-118/68-78 Date of Session: 09/03/18 Chief Complaint:: " my cousin today." HPI: Patient admitted to for cocaine and opiate dependence. ROS: hypertension. Current Medications: Active Medications Generic Name Dose Route Start Last Admin Trade Name Freq PRN Reason Stop Dose Admin Acetaminophen 650 mg 09/01/18 19:23 Tylenol - PO Q4H PRN FEVER Al Hydroxide/Mg Hydroxide 30 ml 09/01/18 19:23 Mylanta Oral Suspension - PO Q6H PRN DYSPEPSIA Bupropion HCl 100 mg 09/03/18 10:00 09/03/18 11:21 Wellbutrin - PO 100 mg DAILY TODD Administration Chlordiazepoxide HCl 15 mg 09/03/18 23:00 Librium - PO 09/04/18 17:01 [id number] TODD Chlordiazepoxide HCl 10 mg 09/04/18 23:00 Librium - PO 09/05/18 17:01 [id number] TODD Chlordiazepoxide HCl 25 mg 09/01/18 19:23 09/02/18 21:09 Librium - PO 09/04/18 19:23 25 mg Q4H PRN Administration WITHDRAWAL(CONT SUBST) Clotrimazole 1 applic 09/02/18 22:00 09/02/18 22:38 Gyne-Lotrimin - VG 09/08/18 22:01 1 applic HS TODD Administration Colchicine 0.6 mg 09/02/18 10:00 09/03/18 11:09 Colcrys - PO 0.6 mg DAILY TODD Administration Enalapril Maleate 10 mg 09/02/18 10:00 09/03/18 11:09 Vasotec - PO 10 mg DAILY TODD Administration Eucalyptus/Menthol/Phenol/Sorbitol 1 each 09/01/18 19:23 Cepastat Lozenge - MM Q4H PRN SORE THROAT Guaifenesin 10 ml 09/01/18 19:23 Robitussin Dm - PO Q6H PRN COUGH Hydroxyzine Pamoate 50 mg 09/01/18 19:23 09/01/18 23:24 Vistaril - PO 50 mg Q4H PRN Administration AGITATION Ibuprofen 400 mg 09/01/18 19:23 09/01/18 23:24 Motrin - PO 400 mg Q6H PRN Administration PAIN LEVEL 4-6 Loperamide HCl 4 mg 09/01/18 19:23 Imodium - PO Q6H PRN DIARRHEA Magnesium Citrate 300 ml 09/01/18 19:23 Citroma - PO Q48H PRN CONSTIPATION Magnesium Hydroxide 30 ml 09/01/18 19:23 Milk Of Magnesia - PO DAILY PRN CONSTIPATION Melatonin 5 mg 09/01/18 22:00 09/02/18 22:38 Melatonin PO 5 mg HS PRN Administration INSOMNIA Methadone HCl 15 mg 09/03/18 10:00 09/03/18 11:09 Dolophine - PO 09/04/18 10:01 15 mg DAILY TODD Administration Methadone HCl 5 mg 09/06/18 06:00 Dolophine - PO 09/06/18 06:01 DAILY@0600 TODD Methadone HCl 10 mg 09/05/18 10:00 Dolophine - PO 09/05/18 10:01 DAILY TODD Multi-Ingredient Lotion 1 applic 09/02/18 16:00 09/03/18 11:09 Eucerin (Small Jar) - TP 1 applic DAILY TODD Administration Nicotine 21 mg 09/02/18 10:00 09/03/18 11:08 Nicoderm Patch - TD Not Given DAILY TODD Nicotine Polacrilex 4 mg 09/01/18 19:23 09/03/18 11:21 Nicorette Gum - BC 4 mg Q2H PRN Administration NICOTINE REPLACEMENT RX Multivit/Folic Acid/Iron 1 tab 09/02/18 10:00 09/03/18 11:09 Vitamins (Sjr) - PO 1 tab DAILY TODD Administration Pseudoephedrine/Triprolidine 1 combo 09/01/18 19:23 Actifed - PO TID PRN NASAL CONGESTION Quetiapine Fumarate 100 mg 09/02/18 22:00 09/02/18 22:38 Seroquel - PO 100 mg HS TODD Administration Thiamine HCl 100 mg 09/01/18 22:00 09/02/18 22:38 Vitamin B1 - PO 100 mg HS TODD Administration Medication(s) Change(s): Will d/c Wellbutrin Current Side Effect: No Lab tests ordered: No Lab tests reviewed: Yes Provider note:: Service Delivery Supervisor able to meet with patient for psychiatric consultation. Patient presents as calm, cooperative but appears sad and tearful. She reports having a difficult afternoon after she was informed by her family member that her cousin earlier today. Patient reports worsening irritability and requesting wellbutrin be discontinued as she has not taken the medication in several months. She reports past history of taking paxil and seroquel. Patient able to accept positive reassurance from staff. Medications reviewed with patient. Patient is prescribed seroquel 100mg qhs. Patient refusing to accept a low dose of seroquel in the morning to help reduce irritability. Patient made aware that vistaril 50mg q4h is ordered for agitation which she states she was not aware of. Benefits and side effects of vistaril discussed. Patient satisified and receptive to feedback. She reports feeling much better after speaking to advertising writer. She reports motivation to continue with detox. Ms. Dotson denies thoughts or urges to hurt self or others. Total face to face time:: 25 Mental Status Exam - Mental Status Exam Alert and Oriented to: Time, Place, Person Cognitive Function: Good Patient Appearance: Well Groomed Mood: Sad Affect: Mood Congruent Patient Behavior: Crying (mildly tearful), Cooperative Speech Pattern: Clear, Appropriate Voice Loudness: Normal Thought Process: Intact, Goal Oriented Thought Disorder: Not Present Hallucinations: Denies Suicidal Ideation: Denies Homicidal Ideation: Denies Insight/Judgement: Poor Sleep: Fair Appetite: Fair Muscle strength/Tone: Normal Gait/Station: Normal Psychiatric Treatment Plan - Problem List (1) Grieving Current Visit: Yes (2) Cocaine dependence Current Visit: Yes Qualifiers: Substance use status: uncomplicated Qualified Code(s): F14.20 - Cocaine dependence, uncomplicated (3) Opioid dependence with withdrawal Current Visit: Yes (4) PTSD (post-traumatic stress disorder) Current Visit: Yes (5) Substance induced mood disorder Current Visit: Yes
[2018-09-03] MEDS: hydrOXYzine PAMOATE 50 MG CAPSULE (FP) PO PRN (18:42)
[2018-09-03] MEDS: chlordiazePOXIDE 5 MG CAPSULE PO SCH (22:23)
[2018-09-03] MEDS: QUEtiapine FUMARATE 100 MG TABLET (FP) PO SCH (22:23)
[2018-09-03] MEDS: THIAMINE HCL 100 MG TABLET (FP) PO SCH (22:23)
[2018-09-03] MEDS: MELATONIN 5 MG TABLETS PO PRN (22:25)
[2018-09-03] MEDS: CLOTRIMAZOLE 1% VAGINAL CREAM WITH APPLICATOR 45 GM TUBE VG SCH (22:52)
[2018-09-04] MEDS: chlordiazePOXIDE 5 MG CAPSULE PO SCH (06:00)
[2018-09-04] MEDS: NICOTINE POLACRILEX 4 MG GUM BC PRN ×2 (07:11→10:27)
[2018-09-04 09:28] VITALS: BP 136/80; PULSE 91; TEMP 96.2
[2018-09-04] MEDS ORDERED: chlordiazePOXIDE HCL 10 MG CAPSULE PO SCH ×2 (09:32→23:00)
--- NOTE | 2018-09-04 09:57 | PN ---
[facility] Progress Note Note: Psychiatric nurse practitioner note: Patient leaving today as she is unwilling to continue to detox due to the noise level and population on the unit. Patient has been receiving Seroquel 100mg HS and Vistaril 50mg prn for anxiety. A seven day prescription will be sent to [facility]. Patient encouraged to follow up with her outpatient provider. Face to Face: 10 minutes
[2018-09-04] MEDS: METHADONE HCL 5 MG TABLET (FOR DETOX USE ONLY) PO SCH (10:19)
[2018-09-04] MEDS: ENALAPRIL MALEATE 10 MG TABLET (FP) PO SCH (10:25)
[2018-09-04] MEDS: MINERAL OIL/PETROLAT/WATER TOPICAL CREAM 113 GM JAR TP SCH (10:25)
[2018-09-04] MEDS: PRENATAL VITAMINS W/ FOLIC ACID TABLET (FP) PO SCH (10:25)
[2018-09-04] MEDS: COLCHICINE 0.6 MG TABLET (FP) PO SCH (10:26)
[2018-09-04] MEDS: hydrOXYzine PAMOATE 50 MG CAPSULE (FP) PO PRN (10:28)
[2018-09-04] MEDS: NICOTINE 21 MG/24 HOURS TOPICAL PATCH TD SCH (10:30)
[2018-09-04] MEDS ORDERED: METHADONE HCL 10 MG TABLET (FOR DETOX USE ONLY) PO ONE (10:30)
--- NOTE | 2018-09-04 19:14 | PN ---
[facility] Progress Note (SOAP) Subjective: Patient denies current Withdrawal / Detox symptoms and reports that he feels well overall. Objective: PATIENT A & O X 3, OBSERVED AMBULATING ON UNIT. IN NO ACUTE DISTRESS. 09/04/18 19:13 Vital Signs Temperature 96.2 F L 09/04/18 09:27 Pulse Rate 91 H 09/04/18 09:27 Respiratory Rate 18 09/04/18 09:27 Blood Pressure 136/80 09/04/18 09:27 O2 Sat by Pulse Oximetry (%) Laboratory Tests 09/02/18 09/02/18 09/02/18 10:30 10:30 10:30 WBC 6.7 RBC 4.35 Hgb 13.7 Hct 40.7 MCV 93.6 MCH 31.6 MCHC 33.7 RDW 13.6 D Plt Count 194 MPV 8.6 Sodium 139 Potassium 3.7 Chloride 104 Carbon Dioxide 29 Anion Gap 5 L BUN 23 H Creatinine 1.1 Creat Clearance w eGFR 52.36 Random Glucose 169 H Calcium 8.7 Total Bilirubin 0.2 AST 15 ALT 13 Alkaline Phosphatase 153 H Total Protein 6.6 Albumin 3.2 L RPR Titer Nonreactive LABS NOTED. Assessment: 09/04/18 19:13 COMPLETION OF DETOX REGIMEN. Plan: PATIENT GRANTED AN EARLY DISCHARGE FROM DETOX UNIT SO THAT SHE MAY PROCEED ON TO NEXT STEP OF HER AFTERCARE PROCESS.
--- NOTE | 2018-09-04 19:15 | DS ---
[facility] Detox Discharge Summary Admission Date: 09/01/18 Discharge Date: 09/04/18 - History Present History: Alcohol Dependence, Cocaine Dependence, Opioid Dependence Additional Comments: PATIENT DENIES CURRENT WITHDRAWAL/DETOX SYMPTOMS AND REPORTS THAT SHE FEELS WELL OVERALL AT TIME OF DISCHARGE FROM DETOX UNIT. PATIENT GOING TO [facility] ([place], [place]) FOR AFTERCARE. PATIENT ADVISED TO FOLLOW-UP WITH [facility] ([facility], [place], [place]) SOON POSSIBLE AFTER DISCHARGE FROM DETOX UNIT FOR GENERAL MEDICAL ASSESSMENT AND FOR HISTORY OF HYPERTENSION. PATIENT VERBALIZED UNDERSTANDING OF RECOMMENDATION. 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 PATIENT WAS DISCHARGED FROM DETOX UNIT IN STABLE MEDICAL CONDITION. Pertinent Past History: HTN, Nicotine Dependence, Grieving, History of P.T.S.D., Gout of Knee. - Physical Exam Results Vital Signs: Vital Signs Temperature 96.2 F L 09/04/18 09:27 Pulse Rate 91 H 09/04/18 09:27 Respiratory Rate 18 09/04/18 09:27 Blood Pressure 136/80 09/04/18 09:27 O2 Sat by Pulse Oximetry (%) Pertinent Admission Physical Exam Findings: WITHDRAWAL SYMPTOMS. Laboratory Tests 09/02/18 09/02/18 09/02/18 10:30 10:30 10:30 WBC 6.7 RBC 4.35 Hgb 13.7 Hct 40.7 MCV 93.6 MCH 31.6 MCHC 33.7 RDW 13.6 D Plt Count 194 MPV 8.6 Sodium 139 Potassium 3.7 Chloride 104 Carbon Dioxide 29 Anion Gap 5 L BUN 23 H Creatinine 1.1 Creat Clearance w eGFR 52.36 Random Glucose 169 H Calcium 8.7 Total Bilirubin 0.2 AST 15 ALT 13 Alkaline Phosphatase 153 H Total Protein 6.6 Albumin 3.2 L RPR Titer Nonreactive LABS NOTED. - Treatment Hospital Course: Detox Protocol Followed, Detoxed Safely, Responded well, Discharged Condition Good Patient has Accepted a Rehab Referral to: PPT. GOING TO [facility] ([place]) FOR AFTERCARE. - Medication Discharge Medications: Ambulatory Orders Quetiapine Fumarate [Seroquel -] 100 mg PO DAILY 01/08/16 clonazePAM [Klonopin -] 2 mg PO BID 01/08/16 Bupropion HCl [Wellbutrin Xl -] 150 mg PO DAILY #30 tab.sr.24h 01/09/16 metroNIDAZOLE [Flagyl -] 500 mg PO TID #12 tablet 02/07/17 Enalapril Maleate [Vasotec -] 10 mg PO DAILY 30 Days #30 tab 09/04/18 Quetiapine Fumarate [Seroquel] 100 mg PO HS #7 tablet 09/04/18 hydrOXYzine PAMOATE [Vistaril -] 50 mg PO Q8H PRN #7 capsule 09/04/18 - Diagnosis (1) Grieving Status: Acute (2) Cocaine dependence Status: Chronic Qualifiers: Substance use status: uncomplicated Qualified Code(s): F14.20 - Cocaine dependence, uncomplicated (3) Gout of knee Status: Chronic Qualifiers: Gout etiology: unspecified cause Chronicity: unspecified Laterality: left Qualified Code(s): M10.9 - Gout, unspecified (4) Hypertension Status: Chronic Qualifiers: Hypertension type: essential hypertension Qualified Code(s): I10 - Essential (primary) hypertension (5) Nicotine dependence Status: Chronic Qualifiers: Nicotine product type: cigarettes Substance use status: uncomplicated Qualified Code(s): F17.210 - Nicotine dependence, cigarettes, uncomplicated (6) Opioid dependence with withdrawal Status: Chronic (7) PTSD (post-traumatic stress disorder) Status: Chronic (8) Substance induced mood disorder Status: Chronic - AMA Did Patient Leave Against Medical Advice: No
[2018-09-05] MEDS ORDERED: METHADONE HCL 10 MG TABLET (FOR DETOX USE ONLY) PO SCH (10:00)
[2018-09-06] MEDS ORDERED: METHADONE HCL 5 MG TABLET (FOR DETOX USE ONLY) PO SCH (06:00)
== END 2018-09-04 10:50 | disposition home or self-care (01) | DRG 773 ==
LOC: YASAS 17:01 → Y3N 21:01
PROVIDERS: ADMIT Surgery; ATTEND Surgery
PROC: HZ2ZZZZ Detoxification Services for Substance Abuse Treatment (ICD-10-PCS; principal; 2018-09-01)
DX: F11.23 Opioid dependence with withdrawal (principal); F10.230 Alcohol dependence with withdrawal, uncomplicated; F14.20 Cocaine dependence, uncomplicated; F17.213 Nicotine dependence, cigarettes, with withdrawal; F43.10 Post-traumatic stress disorder, unspecified; F19.24 Other psychoactive substance dependence with psychoactive substance-induced mood disorder; I10 Essential (primary) hypertension; M10.9 Gout, unspecified; B18.2 Chronic viral hepatitis C; Z63.4 Disappearance and death of family member
CPT/HCPCS: 36415; 80053; 85027; 86593; 93005; 93010

== ENCOUNTER 2021-02-05 13:46 | Inpatient (IN) | payer OTHER ==
[2021-02-05 14:27] VITALS: BMI 26.6
[2021-02-05] MEDS ORDERED: methaDONE HCL 10 MG TABLET (FOR DETOX USE ONLY) PO ONE (15:23)
[2021-02-05] MEDS ORDERED: MENTHOL/PHENOL 1 EACH UD MM PRN (15:23)
[2021-02-05] MEDS ORDERED: ACETAMINOPHEN 325 MG TABLET (FP) PO PRN ×2 (15:23)
[2021-02-05] MEDS ORDERED: MAGNESIUM HYDROX 2400MG/30ML ORAL SUSPENSION 30 ML CUP PO PRN (15:23)
[2021-02-05] MEDS ORDERED: BISMUTH SUBSALICYLATE 262 MG/15 ML BTL PO PRN (15:23)
[2021-02-05] MEDS ORDERED: ONDANSETRON *ODT* 4 MG TABLET SL PRN (15:23)
[2021-02-05] MEDS ORDERED: MAG HYDROX/AL HYDROX/SIMETH 30 ML UNIT-DOSE CUP PO PRN (15:23)
[2021-02-05] MEDS ORDERED: MAGNESIUM CITRATE 300 ML BOTTLE PO PRN (15:23)
[2021-02-05] MEDS: cloNIDine HCL 0.1 MG TABLET PO PRN (16:41)
[2021-02-05] MEDS: METHOCARBAMOL 500 MG TABLET PO PRN ×2 (16:41→22:05)
[2021-02-05] MEDS: NICOTINE 14 MG/24 HOURS TOPICAL PATCH TD SCH (16:43)
[2021-02-05] MEDS: PRENATAL VITAMINS W/ FOLIC ACID TABLET (FP) PO SCH (16:47)
[2021-02-05] MEDS: hydrOXYzine PAMOATE 25 MG CAPSULE (FP) PO SCH ×2 (17:06→22:05)
[2021-02-05] MEDS: NICOTINE POLACRILEX 2 MG GUM BUC PRN ×2 (18:45→21:29)
[2021-02-05] MEDS: IBUPROFEN 400 MG TABLET (FP) PO PRN (22:05)
[2021-02-05] MEDS: THIAMINE HCL 100 MG TABLET (FP) PO SCH (22:05)
[2021-02-05] MEDS: MELATONIN 5 MG TABLETS PO SCH (22:05)
[2021-02-06] MEDS: hydrOXYzine PAMOATE 25 MG CAPSULE (FP) PO SCH (06:37)
[2021-02-06] MEDS ORDERED: methaDONE HCL 10 MG TABLET (FOR DETOX USE ONLY) ONE (09:26)
[2021-02-06] MEDS: PRENATAL VITAMINS W/ FOLIC ACID TABLET (FP) PO SCH (10:00)
[2021-02-06] MEDS: NICOTINE 14 MG/24 HOURS TOPICAL PATCH TD SCH (10:00)
[2021-02-06] MEDS: METHOCARBAMOL 500 MG TABLET PO PRN ×2 (10:03→22:16)
[2021-02-06] MEDS: IBUPROFEN 400 MG TABLET (FP) PO PRN (10:03)
[2021-02-06] MEDS: hydrOXYzine PAMOATE 25 MG CAPSULE (FP) PO PRN ×2 (10:04→22:15)
[2021-02-06] MEDS: NICOTINE POLACRILEX 2 MG GUM BUC PRN ×4 (10:04→22:18)
[2021-02-06 10:37] LABS: HEMATOCRIT 40.1 % (32.4-45.2); HEMOGLOBIN 13.5 GM/dL (10.7-15.3); MCH 30.6 pg (25.7-33.7); MCHC 33.7 g/dl (32.0-36.0); MEAN CELL VOLUME 90.8 fl (80-96); MEAN PLT VOLUME 8.3 fl (7.5-11.1); PLATELET COUNT 198 10^3/uL (134-434); RBC 4.42 M/mm3 (3.60-5.2); RDW 13.6 % (11.6-15.6)
[2021-02-06 10:47] LABS: CALCIUM 9.2 mg/dL (8.5-10.1)
[2021-02-06 10:48] LABS: ALBUMIN 3.3 g/dl (3.4-5.0)
[2021-02-06 10:50] LABS: CREATININE 1.2 mg/dL (0.55-1.3)
[2021-02-06 10:52] LABS: BILIRUBIN,TOTAL 0.3 mg/dL (0.2-1); TOT PROT 6.3 g/dl (6.4-8.2)
[2021-02-06] MEDS ORDERED: PENICILLIN G BENZATHINE 2,400,000 UNIT/4 ML PFS IM ONE (13:14)
[2021-02-06] MEDS: cloNIDine HCL 0.1 MG TABLET PO PRN ×2 (15:56→20:30)
[2021-02-06] MEDS: MELATONIN 5 MG TABLETS PO SCH (22:15)
[2021-02-06] MEDS: QUEtiapine FUMARATE 50 MG TABLET PO SCH (22:15)
[2021-02-06] MEDS: THIAMINE HCL 100 MG TABLET (FP) PO SCH (22:16)
[2021-02-07] MEDS: hydrOXYzine PAMOATE 25 MG CAPSULE (FP) PO PRN ×2 (07:33→09:57)
[2021-02-07] MEDS: METOPROLOL TARTRATE 50 MG TABLET (FP) PO SCH (09:57)
[2021-02-07] MEDS: METHOCARBAMOL 500 MG TABLET PO PRN ×2 (09:58→19:14)
[2021-02-07] MEDS: PRENATAL VITAMINS W/ FOLIC ACID TABLET (FP) PO SCH (09:58)
[2021-02-07] MEDS: NICOTINE 14 MG/24 HOURS TOPICAL PATCH TD SCH (09:58)
[2021-02-07] MEDS: NICOTINE POLACRILEX 2 MG GUM BUC PRN ×4 (09:59→22:11)
[2021-02-07] MEDS ORDERED: methaDONE HCL 10 MG TABLET (FOR DETOX USE ONLY) PO ONE (10:00)
[2021-02-07 10:21] LABS: ALBUMIN 3.4 g/dl (3.4-5.0)
[2021-02-07 10:22] LABS: BLOOD UREA NITROGEN 18.2 mg/dL (7-18)
[2021-02-07 10:24] LABS: CREATININE 1.1 mg/dL (0.55-1.3)
[2021-02-07 10:25] LABS: CALCIUM 8.7 mg/dL (8.5-10.1)
[2021-02-07 10:26] LABS: BILIRUBIN,TOTAL 0.2 mg/dL (0.2-1); TOT PROT 6.4 g/dl (6.4-8.2)
[2021-02-07] MEDS: diazePAM 5 MG TABLET PO PRN ×2 (11:44→19:13)
[2021-02-07] MEDS: NICOTINE 10 MG CARTRIDGE (INHALER) IH PRN (14:00)
[2021-02-07] MEDS ORDERED: QUEtiapine FUMARATE 25 MG TABLET ONE (21:02)
[2021-02-07] MEDS: QUEtiapine FUMARATE 50 MG TABLET PO SCH (22:09)
[2021-02-07] MEDS: THIAMINE HCL 100 MG TABLET (FP) PO SCH (22:09)
[2021-02-07] MEDS: MELATONIN 5 MG TABLETS PO SCH (23:12)
[2021-02-08] MEDS ORDERED: methaDONE HCL 10 MG TABLET (FOR DETOX USE ONLY) ONE (09:07)
[2021-02-08] MEDS: METHOCARBAMOL 500 MG TABLET PO PRN ×2 (09:27→22:55)
[2021-02-08] MEDS: METOPROLOL TARTRATE 50 MG TABLET (FP) PO SCH (09:27)
[2021-02-08] MEDS: PRENATAL VITAMINS W/ FOLIC ACID TABLET (FP) PO SCH (09:28)
[2021-02-08] MEDS: NICOTINE 14 MG/24 HOURS TOPICAL PATCH TD SCH (09:28)
[2021-02-08] MEDS: diazePAM 5 MG TABLET PO PRN ×3 (09:29→22:55)
[2021-02-08] MEDS: NICOTINE 10 MG CARTRIDGE (INHALER) IH PRN ×2 (09:46→17:07)
[2021-02-08] MEDS: NICOTINE POLACRILEX 2 MG GUM BUC PRN ×2 (09:46→13:56)
[2021-02-08] MEDS: TOLNAFTATE 1% CREAM 15 GM TUBE TP SCH ×2 (14:15→23:32)
[2021-02-08] MEDS: hydrOXYzine PAMOATE 25 MG CAPSULE (FP) PO PRN (17:04)
[2021-02-08] MEDS: QUEtiapine FUMARATE 50 MG TABLET PO SCH (22:55)
[2021-02-08] MEDS: THIAMINE HCL 100 MG TABLET (FP) PO SCH (22:55)
[2021-02-08] MEDS: MELATONIN 5 MG TABLETS PO SCH (22:55)
[2021-02-09] MEDS ORDERED: methaDONE HCL 10 MG TABLET (FOR DETOX USE ONLY) PO ONE (10:00)
[2021-02-09] MEDS: PRENATAL VITAMINS W/ FOLIC ACID TABLET (FP) PO SCH (10:09)
[2021-02-09] MEDS: METOPROLOL TARTRATE 50 MG TABLET (FP) PO SCH (10:09)
[2021-02-09] MEDS: METHOCARBAMOL 500 MG TABLET PO PRN (10:09)
[2021-02-09] MEDS: NICOTINE 14 MG/24 HOURS TOPICAL PATCH TD SCH (10:10)
[2021-02-09] MEDS: TOLNAFTATE 1% CREAM 15 GM TUBE TP SCH ×2 (10:10→21:42)
[2021-02-09] MEDS: NICOTINE POLACRILEX 2 MG GUM BUC PRN ×2 (13:27→19:52)
[2021-02-09] MEDS: diazePAM 5 MG TABLET PO PRN ×2 (14:31→19:50)
[2021-02-09] MEDS: IBUPROFEN 400 MG TABLET (FP) PO PRN (17:07)
[2021-02-09] MEDS: hydrOXYzine PAMOATE 25 MG CAPSULE (FP) PO PRN (17:07)
[2021-02-09] MEDS: NICOTINE 10 MG CARTRIDGE (INHALER) IH PRN (19:50)
[2021-02-09] MEDS: THIAMINE HCL 100 MG TABLET (FP) PO SCH (21:40)
[2021-02-09] MEDS: QUEtiapine FUMARATE 50 MG TABLET PO SCH (21:41)
[2021-02-09] MEDS: MELATONIN 5 MG TABLETS PO SCH (21:41)
[2021-02-09 22:06] VITALS: TEMP 96.8
[2021-02-10] MEDS: IBUPROFEN 400 MG TABLET (FP) PO PRN (07:05)
[2021-02-10] MEDS: diazePAM 5 MG TABLET PO PRN ×2 (07:05→11:51)
[2021-02-10] MEDS: PRENATAL VITAMINS W/ FOLIC ACID TABLET (FP) PO SCH (09:49)
[2021-02-10] MEDS: METOPROLOL TARTRATE 50 MG TABLET (FP) PO SCH (09:49)
[2021-02-10] MEDS: NICOTINE 14 MG/24 HOURS TOPICAL PATCH TD SCH (09:49)
[2021-02-10] MEDS: TOLNAFTATE 1% CREAM 15 GM TUBE TP SCH (09:50)
[2021-02-10] MEDS: NICOTINE 10 MG CARTRIDGE (INHALER) IH PRN (10:46)
[2021-02-10] MEDS: NICOTINE POLACRILEX 2 MG GUM BUC PRN (10:46)
[2021-02-10 11:49] VITALS: BP 149/94; PULSE 70
== END 2021-02-10 14:22 | disposition home or self-care (01) | DRG 773 ==
LOC: YASAS 13:46 → Y3N 15:22
PROVIDERS: ADMIT Allergy & Immunology; ATTEND Allergy & Immunology
PROC: HZ2ZZZZ Detoxification Services for Substance Abuse Treatment (ICD-10-PCS; principal; 2021-02-05)
DX: F11.23 Opioid dependence with withdrawal (principal); F14.20 Cocaine dependence, uncomplicated; F17.210 Nicotine dependence, cigarettes, uncomplicated; F19.24 Other psychoactive substance dependence with psychoactive substance-induced mood disorder; F43.10 Post-traumatic stress disorder, unspecified; I10 Essential (primary) hypertension; M10.9 Gout, unspecified; R79.89 Other specified abnormal findings of blood chemistry; R73.9 Hyperglycemia, unspecified; M54.5 Low back pain; Z91.14 Patient's other noncompliance with medication regimen; Z86.19 Personal history of other infectious and parasitic diseases; Z62.810 Personal history of physical and sexual abuse in childhood
CPT/HCPCS: 36415; 80053; 80178; 81025; 85027; 86593; 86780; 93005; 93010; C9803; J0735; U0003; U0005